=== PATIENT | male | born 1960 | race Asian ===

== ENCOUNTER 2018-05-14 19:22 | Emergency (ER) | payer BC ==
--- NOTE | 2018-05-14 22:02 | ED Physician Documentation ---
PD HPI UPPER EXT INJURY - Stated complaint Stated Complaint: L HAND INJ - Chief complaint Chief Complaint: Laceration - History obtained from History obtained from: Patient - History of Present Illness Location: Left, Hand, Finger Type of injury: Fall (he fell down ladder, slid, and tried to grab for a hold, got laceration of fingers from metal sheeting. Abrasions of leg as fell.) Timing - onset: Today Timing - details: Abrupt onset Associated symptoms: No: Weakness, Numbness Similar symptoms before: Has not had sx before Recently seen: Not recently seen Review of Systems Skin: reports: Abrasion (s) (left lower leg.), Laceration (s) (left fingers ring and middle) PD PAST MEDICAL HISTORY - Past Medical History Past Medical History: No - Past Surgical History Past Surgical History: Yes General: Other - Present Medications Home Medications: Ambulatory Orders Medication Instructions Recorded Confirmed No Known Home Medications [No 05/14/18 05/14/18 Known Home Medications] - Allergies Allergies/Adverse Reactions: Allergies Allergy/AdvReac Type Severity Reaction Status Date / Time No Known Drug Allergies Allergy Verified 05/14/18 22:13 - Social History Does the pt smoke?: No Smoking Status: Never smoker - Immunizations Immunizations are current?: No Immunizations: TDAP >10years/unknown PD ED PE NORMAL - Vitals Vital signs reviewed: Yes - General General: Alert and oriented X 3, No acute distress, Well developed/nourished - HEENT HEENT: Atraumatic - Neck Neck: Supple, no meningeal sign, No bony TTP, No adenopathy - Derm Derm: Normal color, Warm and dry - Extremities Extremities: Other (abrasions of leg. Good ROM and no bony tenderness. LEft hand with laceration at middle finger distal phalanx, just at DIP. Able to flex and has normal sensation. There is small lac of ring finger too but superficial small and closed. ) - Neuro Neuro: Alert and oriented X 3, No motor deficit, No sensory deficit Results - Vitals Vitals: Oxygen O2 Source Room air Procedures - Laceration (location) middle finger left Length in cm: 1 Wound type: Flap, Into subcut fat, Clean. No: Into muscle Neurovascular status: Sensory intact, Motor intact Tendon involvement: Tendon intact Anesthesia: Lidocaine 2% Wound Preparation: Irrigated copiously NS, Wound explored, To the base. No: FB identified Skin layer closure: Nylon, Interrupted, Size #-0 - enter number (4) Other: Patient tolerated well, No complications, Neurovascular intact, Dressing applied, Tetanus UTD PD MEDICAL DECISION MAKING - ED course Complexity details: considered differential, d/w patient - Sepsis Event Vital Signs: Oxygen O2 Source Room air Departure - Departure Disposition: 01 Home, Self Care Clinical Impression: Finger laceration Qualifiers: Encounter type: initial encounter Finger: middle finger Damage to nail status: without damage Foreign body presence: without foreign body Laterality: left Qualified Code(s): S61.213A - Laceration without foreign body of left middle finger without damage to nail, initial encounter Condition: Stable Record reviewed to determine appropriate education?: Yes Instructions: ED Laceration Hand Comments: It is okay to wash and shower. Clean off the wound twice a day with soap and water, or peroxide and water. Apply some antibiotic ointment to it to keep it moist. Also to watch for signs of infection such as purulence, redness or increasing pain. Return to your primary care or the ER at the specified time for suture removal. Suture removal in about 8-10 days. Tylenol or ibuprofen if needed for pain. You did receive a tetanus booster here tonight. Discharge Date/Time: 05/14/18 22:54
[2018-05-14] MEDS ORDERED: LIDOCAINE 2% 10 ML MDV SUBQ STA (22:12)
[2018-05-14] MEDS ORDERED: TETANUS/DIPHTHERIA/PERTUSSIS 0.5 ML SYRINGE IM ONE (22:12)
[2018-05-14 22:52] VITALS: BP 139/84
[2018-05-14] MEDS ORDERED: BACITRACIN OINT TOP ONE (23:01)
== END 2018-05-14 22:54 | disposition home or self-care (01) ==
LOC: EDBD → ED 19:22
DX: S61.213A Laceration without foreign body of left middle finger without damage to nail, initial encounter (principal); S61.217A Laceration without foreign body of left little finger without damage to nail, initial encounter; W11.XXXA Fall on and from ladder, initial encounter; Y93.39 Activity, other involving climbing, rappelling and jumping off
CPT/HCPCS: 12001; 90471; 90715; 99283; A9270